=== PATIENT | male | born 1995 | race African-American/Black ===

== ENCOUNTER 2024-04-28 19:31 | Emergency (ER) | payer OTHER, SELFPAY ==
[2024-04-28 19:34] VITALS: BP 125/82
--- NOTE | 2024-04-28 20:14 | ED.GENMED ---
History of Present Illness
General
Chief Complaint: Cough
Source: patient
Exam Limitations: none
Time Seen by Provider: 04/28/24 20:03
History of Present Illness
History of Present Illness:
This is a 29 year old male that comes in with c/o chest tightness. States that last night he felt could take a deep breath and he had chest pain. Today he still has chest tightness and he used his Inhaler 2 puffs every 5 min until he got up to 8
puffs. States that he has chest pain with the SOB, was nauseated yesterday and dizzy. Denies any fever, chills, abd pain, vomiting, diarrhea, headache, urinary burning
Past History
Past History
ED Past Medical History: Asthma and Other (Eczema)
ED Past Surgical History: None
Patient has exhibited threatening behavior?: No
PSI?: No
Social History
Tobacco: Smoker (Cigar occasionally)
Alcohol: Occasional
Personal:
Living: with family
Review of Systems
Review of Systems
All Other Systems: ROS reviewed and negative except as documented in HPI and ROS
Constitutional: Reports no symptoms; Denies fever or chills
EENT: Reports no symptoms
Respiratory: Reports trouble breathing; Denies cough
Cardiac: Reports chest pain
ABD/GI: Reports nausea; Denies abdominal pain, vomiting or diarrhea
: Reports no symptoms; Denies dysuria, frequency or urgency
Musculoskeletal: Reports no symptoms
Skin: Reports no symptoms
Neurological: Reports dizzy; Denies headache
Psychiatric: Reports no symptoms
Phy Exam
General Physical Exam
General Presentation: well appearing and no apparent distress
General age: appears stated age
General Skin: warm and dry
General Habitus: normal
General Mental: alert
General Hydration: appears well hydrated
ENT Exam
ENT Exam: TM's normal, pharynx normal and neck supple
Eye Exam
Eye Exam: EOMI
Cardiovascular Exam
Cardiovascular Exam: regular rate/rhythm, no edema, no murmur and normal peripheral pulses
Pulmonary Exam
Pulmonary Exam: no respiratory distress, no rales, chest non tender, no crackles, no rhonchi, no wheezing, no cough and other (Decreased breath sound right base)
Gastrointestinal Exam
Gastrointestinal Exam: normal bowel sounds, non tender, soft, no organomegaly, no pulsatile mass and non distended
Musculoskeletal Exam
Musculoskeletal Exam: full ROM and no edema
Skin Exam
Skin Exam: normal color, warm/dry, no rash and no petechia
Psychiatric Exam
Psychiatric Exam: normal mood/affect
Course
Orders/Labs/Results
Orders:
Orders
04/28/24 19:33
EKG [Electrocardiogram (*1)] Urgent
Reason for Study: Chest Pain
EKG- Treatment ONCE
04/28/24 20:13
Electrocardiogram (*1) Urgent
Reason for Study: Shortness of Breath
EKG- Treatment ONCE
Ipratropium/Albuterol Sulfate [Duoneb] 3 ml INH R NOW ONE
Prednisone [Deltasone] 50 mg PO NOW STA
04/28/24 20:19
CR Chest - 2 Views Urgent
Comment:
Reason For Exam: SOB, chest pain
04/28/24 20:25
COVID-19 Antigen Urgent
Source: Nasal Swab
Complete Blood Count/With Diff Urgent
Comprehensive Metabolic Panel Urgent
Troponin I Urgent
Abnormal Lab Results
04/28/24
20:25
WBC 11.3 H 10^3/uL
(4.8-10.8)
MCV 79.8 L fL
(80.0-94.0)
RDW 14.9 H %
(11.5-14.5)
Absolute Neuts (auto) 7.2 H 10^3/uL
(1.4-6.5)
Absolute Monos (auto) 1.1 H 10^3/uL
(0.1-0.6)
Monocytes % 9.7 H %
(1.7-9.3)
Glucose 108 H mg/dl
(70-99)
04/28/24 20:25
04/28/24 20:25
WBC very slightly elevated. Glucose nonfasting. COVID negative. Troponin <0.012
Vital Signs
Initial and Last Documented VS:
Initial Vital Signs
Temp Pulse Resp BP Pulse Ox
98.1 F 102 20 125/82 98
04/28/24 19:34 04/28/24 19:34 04/28/24 19:34 04/28/24 19:34 04/28/24 19:34
Last Documented Vital Signs
Temp Pulse Resp BP Pulse Ox
98.1 F 102 20 125/82 98
04/28/24 19:34 04/28/24 19:34 04/28/24 19:34 04/28/24 19:34 04/28/24 19:34
MDM/Problems Addressed
Differential Diagnosis Includes:
Asthma, PNA, Coronary syndrome
MDM/Problems Addressed:
This is a 29 year old male that comes in with c/o chest pain and SOB. States that this started yesterday and today it has continued. States that he has taken 8 puffs on his inhaler
will check labs. Duo neb, chest x-ray and given steroids.
Back into see patient. Patient states that he feels much better. Will give patient oral steroids for a few days and also Albuterol for nebulizer as he says that his daughter has a machine. Will discharge home.
Chronic conditions affecting care: Asthma
Acute Exacerbation and/or Progression of Chronic Illness: Asthma
*Radiology
Radiology exam reviewed: radiology read reviewed (Chest-No acute cardiopulmonary process)
*Pulse Oximetry
Patient hypoxic: no
*EKG
Interpreted by ED Provider?: Yes
Heart Rate: 86
Rate: normal
Rhythm: sinus
[place]: left axis deviation
Interval: normal interval
QRS Pattern: normal QRS
Ischemia: no ischemia
*Hand Profiler Interpretation
Rate: Hand Profiler- N/A
*Critical Care Note
Total Time (30-74mins, 75-104mins- exclusive of procedures): Not Applicable
ED Attending Note
-
Portions of this chart may have been created with voice recognition software.� Occasional wrong word or��sound alike� substitutions may have occurred due to the inherent limitations of voice recognition software.
Discharge Plan
Departure
Patient Disposition: Home (Routine Discharge)
Date of Disposition: 04/28/24
Time of Disposition: 21:12
Patient with high blood pressure during this ER visit?: No
Condition: Good
Covid-19: Negative COVID-19
Discharge Problem:
Asthma
Instructions: Asthma, Adult ED
Prescriptions:
New
prednisone 20 mg tablet
40 mg PO DAILY Qty: 8 0RF
albuterol sulfate 2.5 mg /3 mL (0.083 %) solution for nebulization
2.5 mg inhalation Q4H PRN (Reason: shortness of breath or wheezing) Qty: 75 0RF
Referrals:
Mimi Murillo MD [Active] - Call in 1-3 days for appt
UNKNOWN - PT DOES,NOT KNOW [Family Provider] -
Activity Restrictions/Additional Instructions:
As discussed, you will need to follow up with the party supply specialist. They may wish to get pulmonary function testing. You have had 2 prescription sent to your pharmacy. The first is for a steroid for the next 4 days. The second is for albuterol
solution to use in the nebulizer at home. Please only use if chest tightness or wheezing and at least 4 hours apart. IF YOU HAVE INCREASED SHORTNESS OF BREATH, OR YOU HAVE ANY OTHER CONCERNS PLEASE RETURN TO THE EMERGENCY ROOM
Interventions
Interventions:
*Risk Screen - Suicide Last Done: 04/28/24 19:34
*General Assessment Last Done: 04/28/24 19:34
*Neglect/Abuse Screening Last Done: 04/28/24 19:34
Discharge Date and Time
Print Language: [place]EN[place]
[2024-04-28 20:38] LABS: % Basophils 0.3 % (0-2); % Eosinophils 1.9 % (0-6); % Immature Granulocytes 0.4 % (0-0.5); % Lymphocytes 24.4 % (20.5-51.1); % Monocytes 9.7 % (1.7-9.3); % Neutrophils 63.3 % (42.2-75.2); Absolute Eosinophils 0.2 10^3/uL (0-0.7); Absolute Lymphocytes 2.8 10^3/uL (1.2-3.4); Absolute Monocytes 1.1 10^3/uL (0.1-0.6); Absolute Neutrophils 7.2 10^3/uL (1.4-6.5); Hemoglobin 15.3 g/dL (13.0-18.0); Mean Corpuscular Hgb 27.1 pg (27.0-31.0); Mean Corpuscular Volume 79.8 fL (80.0-94.0); Nucleated Red Blood Cells % 0 % (-); Platelet Count 264 10^3/uL (130-400); Red Blood Cell Count 5.64 10^6/uL (4.70-6.10); Red Cell Dist. Width 14.9 % (11.5-14.5); White Blood Cell Count 11.3 10^3/uL (4.8-10.8)
[2024-04-28] MEDS: DELTASONE 50 MG PO (20:53)
[2024-04-28] MEDS: DUONEB 3 ML INH (20:53)
[2024-04-28 20:54] LABS: ALT (SGPT) 24 U/L (0-50); AST (SGOT) 28 U/L (17-59); Albumin 4.4 g/dl (3.5-5.0); Alkaline Phosphatase 46 U/L (38-126); Blood Urea Nitrogen 18 mg/dl (9-20); Calcium 9.4 mg/dl (8.4-10.2); Carbon Dioxide 29 mmol/L (22-30); Chloride 101 mmol/L (98-107); Glucose 108 mg/dl (70-99); Potassium 4.1 mmol/L (3.5-5.1); Sodium 141 mmol/L (135-145); Total Bilirubin 0.3 mg/dl (0.2-1.3); Total Protein 7.4 g/dl (6.3-8.2); eGFR > 60.00
[2024-04-28 20:55] LABS: COVID-19 Antigen Negative (Negative)
[2024-04-28 21:07] LABS: Troponin I < 0.012 ng/ml
== END 2024-04-28 21:23 | disposition home or self-care (01) ==
LOC: EMR 19:31
PROVIDERS: Clinical Nurse Specialist Family Health; EMERGENCY PHYSICIAN Emergency Medicine
DX: J45.909 Unspecified asthma, uncomplicated (principal); F17.290 Nicotine dependence, other tobacco product, uncomplicated
CPT/HCPCS: 94640; 99285; 71046; 80053; 84484; 85025; 87811; 93005